=== PATIENT | female | born 1960 | race Caucasian/White ===

== ENCOUNTER 2019-11-10 07:57 | Observation (INO) ==
--- NOTE | 2019-10-30 10:07 | PAT Medication Instructions ---
Medication Instructions Date of Service October 30, 2019 Home Medications pramipexole 3 mg PO HS potassium chloride 10 mEq capsule,extended release 10 meq PO BID ibuprofen 800 mg PO BID PRN meloxicam [Mobic] 15 mg PO QAM ASK your surgeon for instructions ibuprofen 800 mg PO BID PRN meloxicam [Mobic] 15 mg PO QAM STOP taking 24 hours before surgery pramipexole 3 mg PO HS DO NOT take the morning of surgery potassium chloride 10 mEq capsule,extended release 10 meq PO BID Take evening before surgery potassium chloride 10 mEq capsule,extended release 10 meq PO BID Other Notes If you have any questions please call us at [phone] or [phone] or [phone] or [phone]
--- NOTE | 2019-10-31 10:03 | Anesthesiology Consultation ---
Date of Service October 31, 2019 Assessment & Plan (1) Encounter for pre-operative examination: Chart Review Chart Review: Acceptable Risk for Surgery and Patient seen in Pre Admission Testing Teaching & Discussion Pre-Anesthesia Teaching/Discussion Notes: Instructed NPO after midnight before surgery,except medications with 15 cc of water. Medication instructions provided according to the PAT guidelines. History Surgery Operation Date: 11/10/19 14:20 Proposed Procedures p Removal Left Patellar Arthroplasty, Possible Revision Left Total Knee - Thony Varela DO Height/Weight Height: 5 ft 2 in Weight: 79.1 kg Allergies Allergy/AdvReac Type Severity Reaction Status Date / Time indomethacin Allergy Mild SEVERE Verified 10/27/19 09:12 HEADACHE iodine Allergy Mild CT SCAN - Verified 10/27/19 09:12 HIVES AND SOB tetanus toxoid, adsorbed Allergy Mild HIGH FEVER Verified 10/27/19 09:12 AND ARM SWELLING AT SITE morphine Allergy Unknown ITCHING,SEVERE Verified 10/27/19 09:12 NAUSEA-PER PT, TOLERATES PERCOCET & OXYCONTIN Medications Home Medications Medication Instructions Recorded Confirmed Last Taken pramipexole 3 mg PO HS 06/22/19 10/27/19 06/27/19 potassium chloride 10 mEq 10 meq PO BID 07/05/19 10/27/19 Unknown capsule,extended release ibuprofen 800 mg PO BID PRN 10/27/19 10/27/19 Unknown meloxicam [Mobic] 15 mg PO QAM 10/27/19 10/27/19 Unknown Past Medical History Medical History (Updated 10/31/19 @ 10:27 by Alicia Molina) History of blood transfusion post-op hysterectomy Kidney stones hx Migraine Obesity Osteoarthritis Restless leg syndrome Exercise / Class Metabolic Activity III < 4 Walking/Shop/Light housework Past Family History Family History Mother No problems noted. Father Diabetes Past Surgical History Surgical History History of breast biopsy BILAT History of colonoscopy History of tonsillectomy and adenoidectomy History of tooth extraction Hx of bilateral breast reduction surgery Hx of section X1 Hx of hysterectomy Hx of knee surgery RIGHT AND LEFT Hx of laparoscopy DUE TO ENDOMETRIOSIS Hx of vaginal surgery REMOVED CERVIX Past Anesthesia History Other ("slow to wake" with cervix removal) Mother: perioperative ?cardiac event-- limited details but she did eventually pass away from complications. History of PONV No Hx of PONV and Hx of Motion Sickness (during ) Social History Smoking Status: Current every day smoker tobacco type: cigarettes Smoking cigarettes per day: 2-3 CIGS PER DAY (HX TOBACCO USE INTERMITTENT X SEVERAL YEARS) Do You Dip or Chew Tobacco: No Hx Alcohol Use: Yes Alcohol type: beer alcohol intake frequency: a few times a month Hx Substance Use: No substance use type: does not use Review of Systems URI symptoms resolving. Patient denies chest pain, shortness of breath, cough, wheezing, palpitations. Physical Exam Vital Signs VITALS BP 132/94 P 93 TEMP 98.5 SP02 95%ra RESP 18 PHYSICAL Full neck and c-spine range of motion. Full TMJ range of motion. TMD 3 finger breaths Mallampati Score 2 Dentition: missing molars Lungs: clear throughout to auscultation Cardiac: regular rate and rhythm, no murmurs noted Spine: normal Carotid arteries: negative bruit Extremities: no edema Testing Laboratory Results 10/31/19 10:08 PT 9.8 Seconds (9.0-12.0) 10/31/19 10:08 INR 1.0 (0.9-1.1) 10/31/19 10:08 APTT 27.3 Seconds (21.0-31.0) 10/31/19 10:08 Blood Type O Positive 10/31/19 10:08 Antibody Screen POSITIVE A 10/31/19 10:08 Blood bank aware of positive T&S antibodies.* Reviewed with Boom from blood bank. He states that patient needs to come in on 11/07 (early in the day if possible) for further blood work in order to have appropriate blood available if needed. Per Boom, he will arrange orders in [facility]/with manager front office. Patient made aware and states that she will come in for requested additional lab work and contact Boom at blood bank if any issue having done. 10/23/19 WBC 9.21 H/H 12.8/36.9 PLT 346 Electrocardiogram Date: 06/28/19 NSR at 92bpm. Low voltage QRS. Chest X-Ray Date: 06/26/19 Linear parenchymal scarring left lung base. No focal infiltrate. Diaphragms are smooth. IMPRESSION: Chronic changes. No acute process. Echocardiogram Date: 07/10/19 EF 60-65%. No RWMA. Borderline cLVH. No significant valvular disease.
[2019-10-31 12:16] LABS: Partial Thromboplastin Time 27.3 Seconds (21.0-31.0); Prothrombin Time 9.8 Seconds (9.0-12.0)
[2019-10-31 12:21] LABS: BUN Creatinine Ratio 35.8 (10-20); Calcium 8.9 mg/dl (8.5-10.1); Creatinine Clr Calc Pharmacy 100.3 ml/min; Est GFR (African American) 117.5; Est GFR (Non-African American) 101.3
--- NOTE | 2019-11-10 06:55 | History & Physical Report ---
Date of Service November 10, 2019 Assessment & Plan (1) Pain in knee region after replacement of knee joint: We will proceed with a left revision knee replacement. She understands the options that can occur intraoperatively. Postoperatively she will be placed on aspirin for DVT prophylaxis and kept overnight in the hospital for postoperative medical management. Present on Admission?: Yes History of Present Illness Chief Complaint: Failed left patellofemoral arthroplasty Primary Care Provider: Cecil Mosley MD Trisha is a pleasant 58-year-old female who underwent a left patellofemoral [place] [address] sanz. She initially did very well postoperatively. Unfortunately over the past 6 months her knee pain is gotten much worse. She did not provide me with any history of trauma. She saw a local orthopedist Dr. Mello who worked her up for an infection. Her infection markers were very mildly elevated. She was having severe pain with the knee. She was ambulating with a crutch or a walker. She presented my office for second opinion. I repeated the infection work-up and the markers were still mildly elevated. The knee did not appear to be infected. Upon closer review of the x-rays, it appears that the mobile-bearing patella had cracked and displaced within the knee joint. After discussions in the office, she has elected to proceed with a left revision knee arthroplasty. She understands that there may be signs of infection within the joint and implants would need to be removed and reimplanted at a later date. She understands that I may need to do a removal of the components and a conversion to a full revision knee replacement. She also understands, that I may just remove the fractured modular component and replace it with a new one. We will have to make these decisions intraoperatively. Allergies Allergy/AdvReac Type Severity Reaction Status Date / Time indomethacin Allergy Mild SEVERE Verified 10/27/19 09:12 HEADACHE iodine Allergy Mild CT SCAN - Verified 10/27/19 09:12 HIVES AND SOB tetanus toxoid, adsorbed Allergy Mild HIGH FEVER Verified 10/27/19 09:12 AND ARM SWELLING AT SITE morphine Allergy Unknown ITCHING,SEVERE Verified 10/27/19 09:12 NAUSEA-PER PT, TOLERATES PERCOCET & OXYCONTIN Home Medications Home Medications Medication Instructions Recorded Confirmed Type pramipexole 3 mg PO HS 06/22/19 10/27/19 History potassium chloride 10 mEq 10 meq PO BID 07/05/19 10/27/19 History capsule,extended release ibuprofen 800 mg PO BID PRN 10/27/19 10/27/19 History meloxicam [Mobic] 15 mg PO QAM 10/27/19 10/27/19 History Past Med/Surg History Medical History History of blood transfusion post-op hysterectomy Kidney stones hx Migraine Obesity Osteoarthritis Restless leg syndrome Surgical History History of breast biopsy BILAT History of colonoscopy History of tonsillectomy and adenoidectomy History of tooth extraction Hx of bilateral breast reduction surgery Hx of section X1 Hx of hysterectomy Hx of knee surgery RIGHT AND LEFT Hx of laparoscopy DUE TO ENDOMETRIOSIS Hx of vaginal surgery REMOVED CERVIX Family History Mother No problems noted. Father Diabetes Social History Preferred Language: Georgian Communication Ability: Effective Independent Living Advisor Required: No Beliefs That Will Affect Care: None Current Living Situation: Family and Significant Other Other Information That Helps Us Care for You: No Feels Safe at Home: Yes Safety Concerns: Feels Safe At This Time Smoking Status: Current every day smoker Tobacco Type: cigarettes ; Cigarettes Per Day: 2-3 CIGS PER DAY (HX TOBACCO USE INTERMITTENT X SEVERAL YEARS) ; Do You Dip or Chew Tobacco: No ; Second Hand Exposure: Yes ; Tobacco Cessation Education Requested by Patient: No Hx Alcohol Use: Yes Alcohol type: beer Hx Substance Use: No Review of Systems All systems reviewed & are unremarkable except as noted in HPI & below Physical Exam Musculoskeletal: On physical examination of her left knee, there is a moderate swelling. She is ambulating with a crutch because the knee pain. She is difficult time doing any flexion or extension because of the knee pain. There is no erythema. Results & Data Laboratory Results Sed rate and CRP were mildly elevated. A knee aspirate was mostly bloody but did show an elevation of white cells. Diagnostic Findings X-rays of the left knee do show a fracture of the modular patellar component.
[~2019-11-10 07:57] MED LIST: ACETAMINOPHEN 500 MG TAB PO SCH; BUPIVACAINE 0.5 % 5 MG/1 ML PF 10ML VIAL ONE; CEFAZOLIN 1000MG 1,000 MG/7.5 ML SYR IV SCH; FAMOTIDINE 20 MG TAB PO SCH; GABAPENTIN 300 MG CAP PO SCH; LR 500ML BOLUS, THEN 15ML/HR IV SCH; LR 60ML/HR IV SCH; ROPIVACAINE 0.5% 5 MG/ML 30 ML VIAL ONE; ROPIVACAINE 0.5% HCL/PF 150 MG, BUPIVACAINE 0.5% MPF 30 ML, EPINEPHrine 30MG/30ML (OR U... INSTIL SCH; TRANEXAMIC ACID 1,000 MG **IV Intra-op IV SCH; TRANEXAMIC ACID 1,000 MG **IV Pre-op IV SCH; dexAMETHasone 4 MG TAB PO SCH
[2019-11-10] MEDS ORDERED: PROPOFOL IV EMULSION 10 MG/ML 20 ML VIAL IV ONE ×3 (09:50→11:51)
[2019-11-10] MEDS ORDERED: MIDAZOLAM HCL 1 MG/ML 2ML VIAL ONE (09:55)
[2019-11-10] MEDS ORDERED: fentaNYL citrate 100 MCG/2 ML VIAL ONE (09:55)
[2019-11-10] MEDS ORDERED: ORTHO JOINT ANESTHETIC ONE (10:59)
[2019-11-10] MEDS ORDERED: ePHEDrine sulfate 50 MG/ML AMP IV PRN (11:17)
[2019-11-10] MEDS ORDERED: ATROPINE SULFATE 0.1 MG/ML 10ML SYR IV PRN (11:17)
--- NOTE | 2019-11-10 13:27 | Operative Report ---
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 She did well until about 6 months ago. She suddenly began having severe pain in the left knee. X-rays and clinical examination became diagnostic for a crack and displacement of the polyethylene patella. She elected to undergo a revision. Description of Procedure On November 10, 2019 she arrived at [facility] for the above procedure. She was seen in the preoperative holding area and the operative extremity was identified and signed. She was given a preoperative antibiotic and a spinal anesthetic. She was taken back to the operating room and laid on the table in the supine position. She was put under basic sedation. The left knee was prepped and draped in sterile fashion. A timeout was done. The patient and the operative extremity was properly identified. The previous midline incision was opened. Dissection was taken down to the extensor mechanism and a medial parapatellar arthrotomy was used. The patella was everted. The plastic modular portion of the patella had cracked into 2 main pieces. These 2 pieces were incarcerated within the knee joint and removed. A third small piece was also found. The patella was re-created on the back table and all the pieces had been removed. It was then sent to pathology. The modular patellar components had been discontinued. The trochlear portion looked okay and there was no damage to the metal surface. She had a little bit of arthritis over the distal medial femoral condyle. The knee was washed out and the decision was made to simply replace the patella. The metal-backed portion of the patella was actually easily removed with a flexible osteotome. I still had excellent bone stock. 3 new peg holes were drilled. A size medium LCS Depuy all poly-patella was then cemented into place with Palacos G cement. Once cement had hardened the knee was brought through a full range of motion felt to be stable. The knee was then irrigated. Surrounding soft tissues were injected with 100 cc of an orthopedic pain control cocktail. The extensor mechanism was then closed with #1 Vicryl suture. Skin was closed with 2-0 Vicryl, 3 oh VueLock suture, and césar. She was then placed in a soft dressing. She was extubated and transferred to a [facility]. She was taken to the postanesthesia care unit in stable condition. She tolerated the procedure well. Thony Valera PA-C, was present for the entire procedure. He was critical for patient positioning, prepping, draping, retraction exposure, wound closure and application of sterile dressing. I attest to the content of the Intraoperative Record and any orders documented therein. Any exceptions are noted below.
--- NOTE | 2019-11-10 13:52 | XRay Report ---
XR knee LT 1 or 2V routine CLINICAL HISTORY: Postoperative evaluation. COMPARISON: Knee radiographs May 31, 2019. FINDINGS: Patellofemoral compartment arthroplasty is noted. Hardware is intact. There are no unexpec logan radiopaque foreign body. Skin césar are present. There is mild joint space narrowing with moder ate osteophytosis and subchondral irregularity within the medial compartment of the left knee. IMPRESSION: Post surgical findings within the left knee, as described above. ACT 112: Negative or not required by law. Electronically signed by: Christopher Suh M.D. 11/10/2019 1:51 PM
[2019-11-10] MEDS ORDERED: bisacodyL 10 MG SUPP PR PRN (14:25)
[2019-11-10] MEDS ORDERED: SODIUM CHLORIDE 0.9% 1000ML 1,000 ML IV SCH (14:25)
[2019-11-10] MEDS ORDERED: METOCLOPRAMIDE HCL INJ 5 MG/ML 2 ML VIAL IV PRN (14:25)
[2019-11-10] MEDS ORDERED: MAGNESIUM HYDROXIDE SUSP 30 ML UDC PO PRN (14:25)
[2019-11-10] MEDS ORDERED: NALOXONE HCL 0.4 MG/1 ML VIAL/CARP IV PRN (14:25)
[2019-11-10] MEDS ORDERED: ONDANSETRON INJ 2 MG/ML 2 ML VIAL IV PRN (14:25)
[2019-11-10] MEDS ORDERED: HYDROmorphone INJ 0.5 MG/0.5 ML SYR IV PRN (14:25)
[2019-11-10] MEDS ORDERED: OXYCODONE HCL IR 5 MG TAB (IMMEDIATE RELEASE) PO PRN (14:25)
[2019-11-10] MEDS ORDERED: CLINDAMYCIN 600 MG in DEXTROSE 5% 50 ML IV SCH (14:25)
[2019-11-10] MEDS: ACETAMINOPHEN 500 MG TAB PO SCH ×2 (15:12→22:03)
[2019-11-10] MEDS: KETOROLAC 30 MG/ML VIAL IV SCH ×2 (15:12→22:05)
--- NOTE | 2019-11-10 15:31 | Anesthesiology Progress Note ---
Date of Service November 10, 2019 Anesthesia Post Procedure Vital Signs Vital Signs: Temp Pulse Pulse Resp BP Pulse Ox 11/10/19 15:24 36.5 C 71 16 106/68 97 11/10/19 14:48 73 16 118/75 98 11/10/19 14:20 36.8 C 71 15 99/70 L 96 11/10/19 14:10 36.7 C 68 14 106/64 94 11/10/19 14:00 36.7 C 66 14 113/65 94 11/10/19 13:50 66 14 120/65 94 11/10/19 13:40 64 14 112/69 98 11/10/19 13:30 72 15 128/70 100 11/10/19 13:20 36.4 C L 75 12 109/67 94 11/10/19 08:58 36.9 C 93 H 18 125/73 95 Pain Intensity Left Knee: Pain Intensity: 9 Transfer of Care Handoff Completed per policy Notes Mental Status: alert / awake / arousable and participated in evaluation Patient Amnestic to Procedure: Yes Nausea / Vomiting: adequately controlled Pain: adequately controlled Airway Patency, RR, SpO2: stable & adequate BP & HR: stable & adequate Hydration State: stable & adequate Anesthetic Complications: no major complications apparent
[2019-11-10] MEDS ORDERED: NON-FORMULARY PATIENT'S OWN MED PO SCH (21:00)
[2019-11-10] MEDS ORDERED: SENNA 8.6 MG TAB PO SCH (21:00)
[2019-11-10] MEDS: POTASSIUM CHLORIDE 10 MEQ TABCR PO SCH (22:04)
[2019-11-10] MEDS: DOCUSATE SODIUM 100 MG CAP PO SCH (22:04)
[2019-11-10] MEDS: ASPIRIN 81 MG ECTAB PO SCH (22:05)
[2019-11-10] MEDS: CLINDAMYCIN 600 MG in DEXTROSE 5% 50 ML IV SCH (22:10)
[2019-11-11] MEDS: KETOROLAC 30 MG/ML VIAL IV SCH ×2 (02:18→08:12)
[2019-11-11 05:50] LABS: Hemoglobin 11.1 g/dL (12.0-16.0); Mean Corpuscular Hemoglobin 27.8 pg (25-34); Mean Corpuscular Hgb Conc 33.6 g/dL (32-36); Mean Corpuscular Volume 82.5 fL (80-100); Platelet Count 403 K/uL (130-400); RDW Coefficient of Variation 15.7 % (11.5-14.5); RDW Standard Deviation 46.9 fL (36.4-46.3); White Blood Count 16.25 K/uL (4.8-10.8)
[2019-11-11 06:22] LABS: BUN Creatinine Ratio 17.6 (10-20); Calcium 8.8 mg/dl (8.5-10.1); Creatinine Clr Calc Pharmacy 89.5 ml/min; Est GFR (African American) 113.3; Est GFR (Non-African American) 97.8; Potassium 3.5 mmol/L (3.5-5.1)
[2019-11-11] MEDS: ACETAMINOPHEN 500 MG TAB PO SCH (06:24)
[2019-11-11] MEDS: CLINDAMYCIN 600 MG in DEXTROSE 5% 50 ML IV SCH (06:24)
[2019-11-11] MEDS ORDERED: dexAMETHasone 4 MG TAB PO SCH (08:00)
--- NOTE | 2019-11-11 08:06 | Orthopedic Progress Note ---
Date of Service November 11, 2019 Assessment & Plan (1) History of revision of total replacement of left knee joint: Overall she is doing very well. She is not having much pain in her left knee. She is on aspirin for DVT prophylaxis. She will be seen by physical therapy again this morning for ambulation and range of motion exercises. She can be discharged home later today. She will follow-up with orthopedics in 2 weeks. Present on Admission?: Yes Carlyle Rico was seen and examined at bedside this morning. Overall she is doing very well. She not having much pain in the left knee. She has already been up and ambulating around the nurses station. She is happy with her progress and has no complaints. Physical Exam Musculoskeletal: On physical examination of her left knee, the dressing is clean and dry. Her knee is out in full extension. She has active dorsiflexion and plantarflexion of her left ankle. Results & Data ([facility]) Vital Signs (Past 12 Hours) Vital Signs Temp Pulse Resp BP BP Pulse Ox 11/11/19 07:05 37 C 80 16 135/76 95 11/11/19 02:43 36.9 C 80 15 117/66 94 11/10/19 23:47 37.0 C 98 H 15 143/80 H 96 Laboratory Results H & H 11/11/19 Range/Units 05:28 Hgb 11.1 L (12.0-16.0) g/dL Hct 33.0 L (37-47) % Coagulation 10/31/19 Range/Units 10:08 INR 1.0 (0.9-1.1) Diagnostic Findings Postoperative x-rays of the left knee show the prosthesis to be in anatomic alignment without any evidence of fracture, dislocation, or loosening. PG Care Time/CCT Total # of Minutes Spent Total Time Spent with Patient: Total time spent is greater than 50% in coordination of care (as documented) at patient's floor/unit and/or counseling patient: Coding Level of Care Code None Diagnoses History of revision of total replacement of left knee joint Z96.652
--- NOTE | 2019-11-11 08:08 | Discharge Summary ---
Date of Service November 11, 2019 Admission HPI Per Admitting Provider Trisha is a pleasant 58-year-old female who underwent a left patellofemoral [place] [address] sanz. She initially did very well postoperatively. Unfortunately over the past 6 months her knee pain is gotten much worse. She did not provide me with any history of trauma. She saw a local orthopedist Dr. Mello who worked her up for an infection. Her infection markers were very mildly elevated. She was having severe pain with the knee. She was ambulating with a crutch or a walker. She presented my office for second opinion. I repeated the infection work-up and the markers were still mildly elevated. The knee did not appear to be infected. Upon closer review of the x-rays, it appears that the mobile-bearing patella had cracked and displaced within the knee joint. After discussions in the office, she has elected to proceed with a left revision knee arthroplasty. She understands that there may be signs of infection within the joint and implants would need to be removed and reimplanted at a later date. She understands that I may need to do a removal of the components and a conversion to a full revision knee replacement. She also understands, that I may just remove the fractured modular component and replace it with a new one. We will have to make these decisions intraoperatively. Principal Diagnosis Left revision patella Discharge Data Allergies Allergy/AdvReac Type Severity Reaction Status Date / Time indomethacin Allergy Mild SEVERE Verified 11/10/19 08:55 HEADACHE iodine Allergy Mild CT SCAN - Verified 11/10/19 08:55 HIVES AND SOB tetanus toxoid, adsorbed Allergy Mild HIGH FEVER Verified 11/10/19 08:55 AND ARM SWELLING AT SITE morphine Allergy Unknown ITCHING,SEVERE Verified 11/10/19 08:55 NAUSEA-PER PT, TOLERATES PERCOCET & OXYCONTIN Consultations 11/10/19 14:25 Consult Case Management - Discharge Planning Routine Procedures Performed Operation Date: 11/10/19 10:40 Actual Procedures p Removal Left Patellar Arthroplasty, Revision Left Patellar Knee Implant (Left) - Thony Varela DO Ordered Studies 11/10/19 05:00 US - OR guided needle placemen Routine Hospital Course (1) History of revision of total replacement of left knee joint: On November 10, 2019 Trisha arrived at [facility] and underwent a revision of the patellar component of her left knee without complication. She had a spinal anesthetic. Postoperatively she was started on aspirin for DVT prophylaxis and transferred to the general orthopedic floors. Her hospital course was uneventful. On postop day #1 her H&H was stable and her pain was well controlled. She was able to participate well with physical therapy doing ambulation and range of motion exercises. She was then discharged home. She will follow-up with orthopedics in 2 weeks. Total Time Total Time Spent Total Time Spent (In Minutes): 20 Discharge Plan Discharge Items Patient Disposition: Home - Home Health Services Reason For Visit: DJD Left Knee Status Post Patellar Arthroplasty Discharge Diagnosis: Revision patellar component left knee Activity: As commented below Non-emergency contact: Surgeon Call non-emergency contact if: your wound has increased redness and your wound has increased drainage Follow-up/Referrals: Cecil Mosley MD [Primary Care Provider] - Diet: Regular Addtl Attending Provider Instructions: Activity and Therapy Recommendations: * If you are using [facility] then therapy will be provided at your home until they feel you have accomplished all of your goals. * If you are using [facility] then Physical Therapy will be provided until they feel you are ready to start Outpatient Physical Therapy. * If you are not using home therapy then Outpatient Physical Therapy should start about 3-5 days from your day of surgery. Therapy will last about 6-10 weeks * It is important not to put a pillow under your knee when you are relaxing or sleeping. It is just as important to make sure you are getting your knee perfectly straight as it is to regain your knee bend. * You were shown a series of exercises in the hospital. Do these exercises three times each day including the exercises you were shown in physical therapy. * Get up and walk several times each day. For the first four weeks, try not to stand or walk for more than one hour at a time. If you do stand or walk for more than one hour, you will not hurt anything, but your leg will likely swell. * As you feel comfortable, you may change from the walker or crutches to a cane and then to independent walking. Medications: * Narcotic You will likely be sent home from the hospital with a prescription for the narcotic pain medication that worked best throughout your stay. * Aspirin Most patients will be required to take Aspirin 81mg twice a day for 6 weeks after surgery. This is obtained [id number] and a prescription is not necessary. * Other medications may be prescribed for specific circumstances. If you have any questions, please call the office at . * Resume previous home medications unless otherwise instructed TEDs/Elastic Stockings: The white elastic stockings help limit swelling and prevent blood clots from forming in your legs.~ The more you wear them, the more they work. Wear them for six weeks. Dressing Care: If the incision is not draining then you may leave the césar open to air. If there is a little bit of drainage or if the césar are getting stuck on your clothing then cover the incision with a dry dressing. The césar will be removed at your 2 week follow-up appointment. Showering: You may shower 5 days from the day of surgery. Let the soapy shower water run over the césar and pat them dry. Do not scrub or soak the incision. Things To Watch For: * Drainage from the incision site that occurs more than one week after your surgery. * Increased redness at the incision site. * Fever above 102 degrees Fahrenheit. * Unusual chest pain or shortness of breath. * Call [facility] at with any of the above pr oblems Follow-Up Visit: Follow-up with Dr. Varela 2-3 weeks after your day of surgery. An appointment was probably scheduled when you signed-up for surgery in the office. If you have any questions call Office Instructions: More detailed instructions as well as Frequently Asked Questions were provided in a folder by our office when you signed-up for surgery. Please review these instructions when you get home. If you have any further questions or concerns, please feel free to call the office at [phone] Pending Studies at Discharge: No Stand-Alone Forms: My [employer], Smoking Cessation Medications and DC Order Prescriptions: New oxycodone 5 mg Tablet 5 mg PO Q4H PRN (Reason: pain) Qty: 30 RF: 0 aspirin 81 mg Tablet,Delayed Release (Dr/Ec) 81 mg PO BID 42 Days Qty: 0 RF: 0 Continued potassium chloride 10 mEq capsule, extended release 10 meq PO BID RF: 0 pramipexole [Mirapex ER] 3 mg Tablet Extended Release 24 Hr 3 mg PO HS RF: 0 ibuprofen 800 mg Tablet 800 mg PO BID PRN (Reason: Pain) RF: 0 meloxicam [Mobic] 15 mg tablet 15 mg PO QAM RF: 0 Discharge Orders: Discharge Order (Routine); Ordered 11/11/19 Ordered By: Thony Varela Admission Data Admit Date/Time: 11/10/19 13:21 Attending Provider: Thony Varela Admit Provider: Thony Varela Primary Care Provider: Cecil Mosley Coding Level of Care Code D/C Day Management <30 mins Diagnoses History of revision of total replacement of left knee joint Z96.652
[2019-11-11] MEDS: DOCUSATE SODIUM 100 MG CAP PO SCH (08:53)
[2019-11-11] MEDS: ASPIRIN 81 MG ECTAB PO SCH (08:53)
[2019-11-11] MEDS: POTASSIUM CHLORIDE 10 MEQ TABCR PO SCH (08:53)
[2019-11-11] MEDS ORDERED: MULTIVITAMIN TAB PO SCH (09:00)
== END 2019-11-11 11:29 | disposition home or self-care (01) ==
LOC: 3E 07:57 → ASU 07:57

== ENCOUNTER 2022-10-02 10:13 | Observation (INO) ==
--- NOTE | 2022-09-02 10:12 | PAT Medication Instructions ---
Medication Instructions Date of Service September 02, 2022 Home Medications pramipexole 3 mg tablet,extended release 24 hr (Mirapex ER) 3 mg PO HS ibuprofen 800 mg tablet 800 mg PO BID PRN Pain Vitamin D2 1 dose PO 2XWK ASK your surgeon for instructions ibuprofen 800 mg tablet 800 mg PO BID PRN Pain DO NOT take the morning of surgery Vitamin D2 1 dose PO 2XWK Take evening before surgery pramipexole 3 mg tablet,extended release 24 hr (Mirapex ER) 3 mg PO HS Other Notes If you have any questions please call us at [phone] or [phone] or [phone] or [phone]
--- NOTE | 2022-09-09 10:54 | Anesthesiology Consultation ---
Date of Service September 09, 2022 Assessment & Plan (1) Encounter for pre-operative examination: - COVID screening: Per assessment on 09/09: No known COVID-19 positive contacts or current COVID-19 related symptoms. Travel screen negative. At surgeon discretion if preop Covid testing being done. - S/P Left removal patellar arthroplasty (11/10/19): SAB at L3-4 (x2 attempts) + PNB at [facility]. No issues noted per post-op anesthesia progress note. Chart Review Chart Review: Acceptable Risk for Surgery and Patient seen in Pre Admission Testing Teaching & Discussion Pre-Anesthesia Teaching/Discussion Notes: Instructed NPO after midnight before surgery,except medications with 15 cc of water. Medication instructions provided according to the PAT guidelines. History Surgery Operation Date: 10/02/22 07:00 Proposed Procedures p Revision Left Patellar Component, Left Total Knee Arthroplasty - Thony Varela, Height/Weight Height: 5 ft 1 in Weight: 84.1 kg Allergies Allergy/AdvReac Type Severity Reaction Status Date / Time iodine Allergy Mild CT scan- Verified 09/09/22 10:57 hives, SOB tetanus toxoid, adsorbed Allergy Mild High Verified 09/09/22 10:57 fever, arm swelling at site morphine Allergy Unknown Itching,severe Verified 09/09/22 15:28 nausea (tolerates percocet & oxytocin per pt) indomethacin AdvReac Mild Severe Verified 09/09/22 10:57 headache Medications Home Medications Medication Instructions Recorded Confirmed Last Taken pramipexole 3 mg tablet,extended 3 mg PO HS 06/22/19 09/01/22 11/08/19 release 24 hr (Mirapex ER) ibuprofen 800 mg tablet 800 mg PO BID PRN Pain 10/27/19 09/01/22 11/03/19 Vitamin D2 1 dose PO 2XWK 09/01/22 09/01/22 Unknown Past Medical History Medical History History of blood transfusion post-op hysterectomy Kidney stones hx Migraine Obesity Osteoarthritis Restless leg syndrome Exercise / Class Metabolic Activity III < 4 Walking/Shop/Light housework (one FS (no CP, + occasional SOB)) Past Family History Family History Mother No problems noted. Father Diabetes Past Surgical History Surgical History History of breast biopsy R/L History of colonoscopy History of revision of total replacement of left knee joint Left removal patellar arthroplasty (11/10/19): SAB at L3-4 (x2 attempts) + PNB at [facility]. No issues noted per post-op anesthesia progress note. History of tonsillectomy and adenoidectomy History of tooth extraction Hx of bilateral breast reduction surgery Hx of section X1 Hx of hysterectomy Partial Hysterectomy Hx of knee surgery R/L Hx of laparoscopy D/T ENDOMETRIOSIS Hx of vaginal surgery REMOVED CERVIX Slow to wake up after anesthesia Past Anesthesia History No Family Hx of Anesthesia Complications and Other ("Slow to wake" with several surgeries) History of PONV No Hx of PONV and Hx of Motion Sickness (only during ) Social History Smoking Status: Current every day smoker tobacco type: cigarettes Smoking cigarettes per day: 2 packs per week (hx intermittent use x several years) Do You Dip or Chew Tobacco: No Hx Alcohol Use: Yes Alcohol type: beer alcohol intake frequency: holidays/special occasions only Hx Substance Use: No substance use type: does not use Review of Systems + snoring. No witnessed apneic events. Patient denies chest pain, shortness of breath, fever, chills, cough, wheezing, palpitations. Physical Exam Vital Signs VITALS BP 143/78 P 102 TEMP 98.4 SP02 95%RA RESP 16 PHYSICAL Full cervical extension range of motion. Full TMJ range of motion. TMD 4 finger breaths Mallampati Score 1, Deviated uvula to right side (per pt, d/t scar tissue from frequent infections prior to tonsillectomy) Dentition: missing molars Lungs: clear throughout to auscultation Cardiac: regular rate and rhythm, no murmurs noted Spine: normal Carotid arteries: negative bruit Extremities: no edema Lab Results Anesthesia Preop Results Results Anesthesia Widget: WBC 10.73 K/ul (4.8-10.8) 09/09/22 Hgb 15.5 g/dl (12.0-16.0) 09/09/22 Hct 46.0 % (34.1-44.9) H 09/09/22 Plt 273 K/uL (130-400) 09/09/22 Na 141 mmol/L (136-145) 09/09/22 K 3.7 mmol/L (3.5-5.1) 09/09/22 Cl 106 mmol/L (98-107) 09/09/22 CO2 26 mmol/L (21-32) 09/09/22 BUN 19 mg/dl (6-23) 09/09/22 Creat 0.62 mg/dl (0.6-1.2) 09/09/22 Glucose Level 182 mg/dl (70-99(Fasting)) H 09/09/22 PT 9.9 Seconds (9.0-12.0) 09/09/22 PTT 26.6 Seconds (21.0-31.0) 09/09/22 INR 0.9 (0.9-1.1) 09/09/22 Blood Type O Positive 09/09/22 Antibody Screen NEGATIVE 09/09/22 Testing Electrocardiogram Date: 09/09/22 ST at 104bpm. LAD. RBBB. Chest X-Ray Date: 09/09/22 FINDINGS: Cardiomediastinal and hilar silhouettes are unchanged. No pneumothorax, pleural effusion or overt pulmonary edema. Linear lingular atelectasis versus scarring redemonstrated. Degenerative changes of the shoulders and spine. IMPRESSION: No acute process. Echocardiogram Date: 07/10/19 EF 60 to 65%. No regional motion abnormality. Borderline concentric LVH. No significant valvular disease. COVID-19 Risk Screen Screening Information COVID-19 Screen Date: 09/09/22 Exposure 21 Days Family/Household +COVID Last 21 Days: No Exposure 10 Days Any COVID Exposure Last 10 Days: No Symptoms Last 10 Days Experienced COVID Sx Last 10 Days: No + COVID 0-90 Days COVID + in Last 0-90 Days: No
--- NOTE | 2022-09-09 15:13 | Electrocardiogram Report ---
Test Reason : Blood Pressure : / mmHG Vent. Rate : 104 BPM Atrial Rate : 104 BPM P-R Int : 156 ms QRS Dur : 110 ms QT Int : 372 ms P-R-T Axes : 079 -30 071 degrees QTc Int : 489 ms Sinus tachycardia Left axis deviation Right bundle branch block Abnormal ECG When compared with ECG of 28-JUN-2019 19:23, Right bundle branch block is now Present Confirmed by Terell Jacobsen ([id number]) on 09/09/2022 3:13:03 PM Referred By: Thony Varela Confirmed By:Terell Jacobsen
[~2022-10-02 10:13] MED LIST changes: -CEFAZOLIN 1000MG 1,000 MG/7.5 ML SYR IV SCH; +ORTHO JOINT MIX INFIL SCH; -ROPIVACAINE 0.5% HCL/PF 150 MG, BUPIVACAINE 0.5% MPF 30 ML, EPINEPHrine 30MG/30ML (OR U... INSTIL SCH; +ceFAZolin 2000MG 2,000 MG/15 ML SYR IV SCH
--- NOTE | 2022-10-02 11:56 | History & Physical Bridge Note ---
Date of Service October 02, 2022 History & Physical Bridge Note I have examined the patient, reviewed the History & Physical and in the interval since the performance of the History & Physical I have noted the following changes of clinical significance: no changes noted
[2022-10-02] MEDS ORDERED: MIDAZOLAM HCL 1 MG/ML 2ML VIAL ONE (12:20)
[2022-10-02] MEDS ORDERED: ORTHO JOINT ANESTHETIC ONE (12:39)
[2022-10-02] MEDS ORDERED: ONDANSETRON INJ 2 MG/ML 2 ML VIAL IV PRN ×2 (12:43→17:09)
[2022-10-02] MEDS ORDERED: ATROPINE SULFATE 0.1 MG/ML 10ML SYR IV PRN (12:43)
[2022-10-02] MEDS ORDERED: fentaNYL citrate 100 MCG/2 ML VIAL IV PRN (12:43)
[2022-10-02] MEDS ORDERED: ePHEDrine sulfate 50 MG/ML AMP IV PRN (12:43)
[2022-10-02] MEDS ORDERED: PROPOFOL IV EMULSION 10 MG/ML 20 ML VIAL IV ONE ×3 (13:16→14:41)
--- NOTE | 2022-10-02 14:25 | Operative Report ---
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 I identified the patient and participated in the time-out.: Yes Procedure Operation Date: 10/02/22 12:50 Actual Procedures p Left Patellar Component Revision, with removal of femoral component and conversion to left Total Knee Arthroplasty(Left) - Thony Varela DO Surgeon Thony Varela DO Wool Shearer Thony Valera PA-C Estimated Blood Loss 20 Findings Consistent with Post-Op Diagnosis Specimens Left femoral and tibial bone Description of Procedure Implants used: I used a Oswaldo Persona total knee arthroplasty system with a size 6 narrow femur, D tibia, and a size 12 medial congruent polyethylene bearing. All components were cemented in place with Biomet cement. The patella was well fixed and not exchanged in this case. Trisha arrived [facility] for the above procedure. She was seen in the preoperative holding area and the operative extremity was identified and signed. She was given a preoperative antibiotic, TXA, a spinal anesthetic and an adductor nerve block. She was taken back to the operating room and laid on the table in supine position. She was given basic sedation. The operative knee was then prepped and draped in sterile fashion. A timeout was done, and the patient and the operative extremity was properly identified. A midline incision was made directly over the patella. Dissection was taken down to the extensor mechanism. A medial parapatellar arthrotomy was used. The medial retinaculum was released and the fat pad was mostly excised. The knee was flexed and the ACL, PCL, and meniscus were removed. The patella appeared to be well fixed. The trochlear implant was easily removed with a bone tamp. There was no signs of loosening of the implant. There was no signs of infection. A drill was sent down the center of the femoral canal followed by an intramedullary margarita. Off that margarita a distal femoral cutting block was placed. 9 mm was resected off the distal femur at 5 of valgus. A posterior referencing AP sizing guide was then placed on the distal femur. The femur measured to be a size 6 narrow. 2 drill holes were placed in 3 of external rotation. A 4-in-1 cutting block was then impacted into place. Anterior, posterior, and chamfer cuts were then made. The proximal tibia was then exposed. An external tibial alignment guide was placed. A tibial cut guide was then anchored in place and the proximal tibia was then resected. The posterior aspect of the knee was then opened up and any additional meniscus fragments and osteophytes were removed. The tibia measured to be a size D. The tibial plate was then placed in the appropriate rotation and the tibia was drilled and punched. Trial components were then placed. I used a size 12 medial congruent polyethylene insert. The knee was brought through a full range of motion and felt to be stable. The peg holes for the femoral component were then drilled. The knee was once again brought through a full range of motion and felt to be stable. Trial components were then removed. The surrounding soft tissues were injected with 100 cc of an orthopedic pain control cocktail. All components were then cemented into place with Biomet cement. The final polyethylene insert was then snapped into place. Once cement was dry the tourniquet was deflated. Hemostasis was obtained. A dilute betadyne lavage was then done for 3 minutes. The joint was then irrigated with normal saline solution. The medial parapatellar arthrotomy was then closed with #1 Vicryl suture. The skin was closed with 2-0 Vicryl, 3-0V lock suture, and césar. A soft compressive dressing was placed. She was then transferred to a hospital bed and taken to the postanesthesia care unit in stable condition. She tolerated the procedure well. Thony Valera PA-C, was present for the entire procedure. He was critical for p atient positioning, prepping, draping, retraction exposure, wound closure and application of sterile dressing. I attest to the content of the Intraoperative Record and any orders documented therein. Any exceptions are noted below.
--- NOTE | 2022-10-02 15:10 | Anesthesiology Progress Note ---
Date of Service October 02, 2022 Anesthesia Post Procedure Vital Signs Vital Signs: Temp Pulse Pulse Resp BP Pulse Ox O2 Del Method 10/02/22 15:05 74 17 123/74 98 Oxymask 10/02/22 14:55 77 21 125/80 97 Oxymask 10/02/22 14:47 36.5 C 81 17 125/73 96 Oxymask 10/02/22 10:40 37 C 94 H 20 148/92 H 96 Room Air O2 Flow Rate 10/02/22 15:05 4 10/02/22 14:55 6 10/02/22 14:47 6 10/02/22 10:40 Pain Intensity Left Knee: Pain Intensity: 0 Transfer of Care Handoff Completed per policy Notes Mental Status: alert / awake / arousable Patient Amnestic to Procedure: Yes Nausea / Vomiting: adequately controlled Pain: adequately controlled Airway Patency, RR, SpO2: stable & adequate BP & HR: stable & adequate Hydration State: stable & adequate Neuraxial Anesthesia: was administered and sensory block is resolving Anesthetic Complications: no major complications apparent and Pt Satisfied with anesthetic care
--- NOTE | 2022-10-02 15:10 | XRay Report ---
LEFT KNEE 2 VIEWS History: Left total knee arthroplasty. Degenerative arthritis. Postop. FINDINGS: The patient is status post a left total knee arthroplasty. The hardware is intact. No fract ure or dislocation. Skin césar are in place. IMPRESSION: Left total knee arthroplasty. No evidence for hardware complication. ACT 112: Negative or not required by law. Electronically signed by: Benito Harrison M.D. 10/02/2022 3:08 PM
[2022-10-02] MEDS ORDERED: HYDROmorphone INJ 0.5 MG/0.5 ML SYR IV PRN (17:09)
[2022-10-02] MEDS ORDERED: NALOXONE HCL 0.4 MG/1 ML VIAL/CARP IV PRN (17:09)
[2022-10-02] MEDS ORDERED: MAGNESIUM HYDROXIDE SUSP 30 ML UDC PO PRN (17:09)
[2022-10-02] MEDS ORDERED: METOCLOPRAMIDE HCL INJ 5 MG/ML 2 ML VIAL IV PRN (17:09)
[2022-10-02] MEDS ORDERED: bisacodyL 10 MG SUPP PR PRN (17:09)
[2022-10-02] MEDS ORDERED: FLUARIX QUADRIVALENT 0.5 ML SYR IM ONE (17:30)
[2022-10-02] MEDS: KETOROLAC 30 MG/ML VIAL IV SCH ×2 (17:53→23:05)
[2022-10-02] MEDS: SODIUM CHLORIDE 0.9% 1000ML 1,000 ML IV SCH (17:58)
[2022-10-02] MEDS: oxyCODONE HCL IR 5 MG TAB (IMMEDIATE RELEASE) PO PRN (20:14)
[2022-10-02] MEDS ORDERED: PRAMIPEXOLE PO SCH (21:00)
[2022-10-02] MEDS ORDERED: SENNA 8.6 MG TAB PO SCH (21:00)
[2022-10-02] MEDS: DOCUSATE SODIUM 100 MG CAP PO SCH (22:03)
[2022-10-02] MEDS: ACETAMINOPHEN 500 MG TAB PO SCH (22:04)
[2022-10-02] MEDS: ASPIRIN 81 MG ECTAB PO SCH (22:04)
[2022-10-02] MEDS: ceFAZolin 2000MG 2,000 MG/15 ML SYR IV SCH (22:06)
[2022-10-03] MEDS: oxyCODONE HCL IR 5 MG TAB (IMMEDIATE RELEASE) PO PRN ×3 (00:13→11:49)
[2022-10-03] MEDS: SODIUM CHLORIDE 0.9% 1000ML 1,000 ML IV SCH (05:13)
[2022-10-03] MEDS: ACETAMINOPHEN 500 MG TAB PO SCH (05:19)
[2022-10-03] MEDS: ceFAZolin 2000MG 2,000 MG/15 ML SYR IV SCH (05:20)
[2022-10-03] MEDS: KETOROLAC 30 MG/ML VIAL IV SCH (05:20)
--- NOTE | 2022-10-03 07:26 | Orthopedic Progress Note ---
Date of Service October 03, 2022 Assessment & Plan (1) Status post left knee replacement: Overall she is doing fairly well. She is not having much pain in her left knee. She will be seen by physical therapy today for ambulation and range of motion exercises. She is on aspirin for DVT prophylaxis. She can be discharged home later today. She will follow-up with orthopedics in 2 weeks. Carlyle Rico was seen and examined at bedside this morning. Overall she is doing very well. She is not having too much pain in the left knee. She has been up and ambulating to the bathroom. She has no complaints.. Review of Systems All systems reviewed & are unremarkable except as noted in HPI & below. Physical Exam On physical examination of the left knee, the dressing is clean and dry. Her leg is out in full extension. She has active dorsiflexion plantarflexion of her left ankle.. Results & Data Results & Data Laboratory Results . Diagnostic Findings Postoperative x-rays of the left knee show the prosthesis to be in anatomic alignment without any evidence of fracture, screws, or loosening. PG Care Time/CCT Total # of Minutes Spent Total Time Spent with Patient: Total time spent is greater than 50% in coordination of care (as documented) at patient's floor/unit and/or counseling patient: Coding Level of Care Code 91270 Post Operative Follow-Up Diagnoses Status post left knee replacement Z96.652
--- NOTE | 2022-10-03 07:27 | Discharge Summary ---
Date of Service October 03, 2022 Principal Diagnosis Same as "Discharge Diagnosis" noted below under Discharge Instructions. Discharge Exam On physical examination of the left knee, the dressing is clean and dry. Her leg is out in full extension. She has active dorsiflexion plantarflexion of her left ankle.. Discharge Data Procedures Performed Operation Date: 10/02/22 12:50 Actual Procedures p Left Patellar Component Revision, Left Total Knee Arthroplasty(Left) - Thony Varela DO Ordered Studies 10/02/22 05:00 US - OR guided needle placemen Routine Hospital Course (1) Status post left knee replacement: On October 02, 2022 Trisha arrived at [facility] and underwent a left knee replacement without complication. She had a spinal anesthetic. Postoperatively she was started on aspirin for DVT prophylaxis and transferred to the general orthopedic floors. Her hospital course was uneventful. On postop day #1, her vital signs were stable and her pain was well controlled. She was able to participate well with physical therapy doing ambulation and range of motion exercises. She was then discharged home. She will follow-up with orthopedics in 2 weeks. PG Care Time/CCT Total # of Minutes Spent Total Time Spent with Patient: Total time spent is greater than 50% in coordination of care (as documented) at patient's floor/unit and/or counseling patient: Discharge Plan Discharge Items Patient Disposition: Home - Home Health Services Reason For Visit: POST OP Discharge Diagnosis: Left knee replacement Activity: Per Instructions section Non-emergency contact: Surgeon Call non-emergency contact if: your wound has increased redness and your wound has increased drainage Follow-up/Referrals: Cecil Mosley MD [Primary Care Provider] - Diet: Regular Addtl Attending Provider Instructions: Activity and Therapy Recommendations: * If you are using [facility] then therapy will be provided at your home until they feel you have accomplished all of your goals. * If you are using [facility] then Physical Therapy will be provided until they feel you are ready to start Outpatient Physical Therapy. * If you are not using home therapy then Outpatient Physical Therapy should start about 3-5 days from your day of surgery. Therapy will last about 6-10 weeks * It is important not to put a pillow under your knee when you are relaxing or sleeping. It is just as important to make sure you are getting your knee perfectly straight as it is to regain your knee bend. * You were shown a series of exercises in the hospital. Do these exercises three times each day including the exercises you were shown in physical therapy. * Get up and walk several times each day. For the first four weeks, try not to stand or walk for more than one hour at a time. If you do stand or walk for more than one hour, you will not hurt anything, but your leg will likely swell. * As you feel comfortable, you may change from the walker or crutches to a cane and then to independent walking. Medications: * Narcotic You will likely be sent home from the hospital with a prescription for the narcotic pain medication that worked best throughout your stay. * Aspirin Most patients will be required to take Aspirin 81mg twice a day for 6 weeks after surgery. This is obtained [id number] and a prescription is not necessary. * Other medications may be prescribed for specific circumstances. If you have any questions, please call the office at . * Resume previous home medications unless otherwise instructed TEDs/Elastic Stockings: The white elastic stockings help limit swelling and prevent blood clots from forming in your legs.~ The more you wear them, the more they work. Wear them for six weeks. Dressing Care: The dressing can be changed after physical therapy on postop day #1. Daily dry dressing changes for a few days, especially if the incision is still draining some. If the incision is not draining then you may leave the césar open to air. If there is a little bit of drainage or if the césar are getting stuck on your clothing then cover the incision with a dry dressing. The césar will be removed at your 2 week follow-up appointment. Showering: You may shower 5 days from the day of surgery as long as the incision is no longer draining. You may shower with the césar exposed. Let soapy water run over the césar and pat them dry. Do not scrub or soak the incision. Things To Watch For: * Drainage from the incision site that occurs more than one week after your surgery. * Increased redness at the incision site. * Fever above 102 degrees Fahrenheit. * Unusual chest pain or shortness of breath. * Call [facility] at with any of the above problems Follow-Up Visit: Follow-up with Dr. Varela's PA (Thony Valera) 2-3 weeks after your day of surgery. He will remove your césar and answer any questions. If you have any additional questions or concerns, Dr Varela is usually in the office at the same time and will be available An appointment was probably scheduled when you signed-up for surgery in the office. If you have any questions call Office Instructions: More detailed instructions as well as Frequently Asked Questions were provided in a folder by our office when you signed-up for surgery. Please review these instructions when you get home. If you have any further questions or concerns, please feel free to call the office at [phone] Pending Studies at Discharge: No Stand-Alone Forms: My [facility] Medications and DC Order Prescriptions: New aspirin 81 mg Tablet,Delayed Release (Dr/Ec) 81 mg PO BID 42 Days Qty: 84 0RF celecoxib [Celebrex] 200 mg capsule 200 mg PO BID Qty: 28 0RF Rx Instructions: Take 1 pill twice a day for 2 weeks after surgery oxycodone-acetaminophen 5-325 mg tablet 1 tab PO Q6H PRN (Reason: pain) Qty: 60 0RF Continued pramipexole [Mirapex ER] 3 mg Tablet Extended Release 24 Hr 3 mg PO HS Vitamin D2 1 dose PO 2XWK Discontinued ibuprofen 800 mg Tablet 800 mg PO BID PRN (Reason: Pain) Admission Data Admit Date/Time: 10/02/22 14:46 Attending Provider: Thony Varela Admit Provider: Thony Varela Primary Care Provider: Cecil Mosley
[2022-10-03] MEDS: ASPIRIN 81 MG ECTAB PO SCH (07:52)
[2022-10-03] MEDS: DOCUSATE SODIUM 100 MG CAP PO SCH (07:52)
[2022-10-03] MEDS ORDERED: dexAMETHasone 4 MG TAB PO SCH (08:00)
[2022-10-03] MEDS ORDERED: MULTIVITAMIN TAB PO SCH (09:00)
== END 2022-10-03 14:14 | disposition home health service (06) ==
LOC: 3W 10:13 → ASU 10:13